=== PATIENT | female | born 1995 | race Caucasian/White ===

== ENCOUNTER 2022-02-16 09:46 | Outpatient (CLI) | payer OTHER, SELFPAY ==
[2022-02-16 12:57] LABS: HIV 1/2/P24 Combo Screen* Negative (Negative)
[2022-02-16 13:42] LABS: Chlamydia DNA Amplified* NOT DETECTED (No Detected); GC DNA Amplified* NOT DETECTED (No Detected)
[2022-02-16 16:46] LABS: Hepatitis B Surface Antigen* Negative (Negative)
[2022-02-16 18:21] LABS: Hepatitis C Virus Antibody* Negative (Negative)
[2022-02-18 00:21] LABS: Rapid Plasma Reagin (RPR) Non Reactive (Non Reactive)
[2022-02-18 03:58] LABS: Rubella Antibody IgG 62.9 IU/mL
== END 2022-02-16 09:47 | disposition home or self-care (01) ==
PROVIDERS: Visit Provider Advanced Practice Midwife
DX: Z34.91 Encounter for supervision of normal pregnancy, unspecified, first trimester (principal); Z3A.08 8 weeks gestation of pregnancy
CPT/HCPCS: 76817; 81420; 86592; 86703; 86762; 86803; 86850; 86900; 86901; 87086; 87340; 87491; 87591

== ENCOUNTER 2022-04-12 08:42 | Outpatient (CLI) | payer OTHER, SELFPAY | END 2022-04-12 08:43 | disposition home or self-care (01) | LOC: NFLDREF 08:43 | PROVIDERS: Visit Provider Advanced Practice Midwife | DX: Z34.92 Encounter for supervision of normal pregnancy, unspecified, second trimester (principal); Z3A.17 17 weeks gestation of pregnancy | CPT/HCPCS: 81511 ==

== ENCOUNTER 2022-05-03 09:34 | Outpatient (CLI) | payer OTHER, SELFPAY ==
--- NOTE | 2022-05-03 09:45 | CRLHL7_ITS ---
For Patients: As a result of the Century Cures Act, medical imaging exams and procedure reports are released immediately into your electronic medical record. You may view this report before your referring provider. If you have questions, please contact your health care provider. OB ULTRASOUND, 05/03/2022 CLINICAL HISTORY: anatomy survey. CASSY by LMP: 09/19/2022. GA: 20 w, 1 d. : 1. FINDINGS: position: Multiple positions. Cervix: Visualized. Technique: Transabdominal and transvaginal. Length of closed cervix: 4.3 cm. Placenta/cord: Posterior. Technique: Transabdominal and transvaginal. Umbilical Cord: 3-vessel cord. Amniotic Fluid: 3.7 cm SDP (greater than/equal to: 2- less than 8 cm). SURVEY: Observed Structures Cerebellum: Yes. 1.9 cm; 19 w 3 d. Cisterna Magna: Yes. 5.0 mm. Nuchal Fold: Yes. 4.3 mm. Lateral Ventricle: Yes. 6.6 mm. CSP: Yes. Midline Falx: Yes. Choroid Plexus: Yes. Spine: Yes. Stomach: Yes. Abd Cord Insertion: Yes. Urinary Bladder: Yes. Kidneys: Yes. Diaphragm: Yes. Nose/lips: Yes. Orbital view: Yes. Profile: Yes. Upper Extremities: Yes. Lower Extremities: Yes. Hands: Yes. Feet: Yes. Four-Chamber Heart: Yes. LVOT: Yes. RVOT: Yes. BPD: 4.3 cm. 19 w 0 d, 11percent. HC: 16.7 cm. 19 w 3 d, 12 percent. AC: 14.7 cm. 20 w 0 d, 39 percent. FL: 3.1 cm. 19 w 3 d, 20 percent. FL/AC: 20.8%. HC/AC Ratio: 1.13. Heart rate: 154 beats per minute. age by this US: 19 w 3 d. CASSY by this US: 09/24/2022. EFW: 307 g. Weight: 0 lbs, 11 oz. Percentile by CASSY: 22%. COMMENT: Cord insertion into the placenta is approximately 1.9 cm from the edge of the placenta. Placenta is posterior with the edge of the placenta at the margin of the cervix. IMPRESSION: 1. Single live intrauterine gestation. No gross anomalies visualized. 2. Cord insertion into placenta near the edge of the placenta, approximately 1.9 cm from the edge. 3. Posterior placenta with edge at the cervix. Isela Guillermo M.D. Diagnostic/Breast Radiologist [email or web address] LAKISHAP/[email or web address] jj/Dictated by: Isela Guillermo MD @ 05/03/2022 1:34:00 PM (Electronically Signed)
== END 2022-05-03 09:35 | disposition home or self-care (01) ==
LOC: US 09:34
PROVIDERS: Visit Provider Advanced Practice Midwife
DX: Z34.92 Encounter for supervision of normal pregnancy, unspecified, second trimester (principal); Z3A.20 20 weeks gestation of pregnancy
CPT/HCPCS: 76805; 76817

== ENCOUNTER 2022-06-29 08:39 | Outpatient (CLI) | payer OTHER, SELFPAY ==
--- NOTE | 2022-06-29 08:45 | CRLHL7_ITS ---
For Patients: As a result of the Century Cures Act, medical imaging exams and procedure reports are released immediately into your electronic medical record. You may view this report before your referring provider. If you have questions, please contact your health care provider. INDICATION: GROWTH, PARTIAL PLACENTA PREVIA COMPARISON: 05/03/2022 TECHNIQUE: Real time lobo scale imaging of the fetus was performed. FINDINGS: Sonographic imaging demonstrates a single living intrauterine gestation. Fetus demonstrates a regular cardiac rate of 161 beats per minute. Fetus has a breech position. The placenta lies posteriorly. The edge of the placenta abuts the internal os. Amniotic fluid volume appears normal and there is a single deepest vertical pocket: 3.4 cm. The estimated weight is 1075gm which lies at the 13th %. On the prior OB ultrasound exam dated 05/03/2022 the estimated weight was at the 22nd%. BPD 16th percentile. HC 30th percentile. AC 20th percentile. FL 8th percentile. The HC/AC ratio measures 1.14 range (1.03-1.22). IMPRESSION: The posterior placental edge abuts the internal cervical os. Sonographic gestational age 27 weeks 5 days and sonographic due date 09/23/2022. Sonographic age 4 days behind clinical age. Estimated weight 13th percentile. Abdominal circumference 20th percentile. Dictated by Jose Bejarano MD @ 06/29/2022 12:00:25 PM (Electronically Signed)
== END 2022-06-29 08:40 | disposition home or self-care (01) ==
LOC: US 08:40
PROVIDERS: Visit Provider Advanced Practice Midwife
DX: O44.22 Partial placenta previa NOS or without hemorrhage, second trimester (principal); Z3A.27 27 weeks gestation of pregnancy
CPT/HCPCS: 76816; 76817; 86592

== ENCOUNTER 2022-07-27 07:12 | Outpatient (CLI) | payer OTHER, SELFPAY ==
--- NOTE | 2022-07-27 07:15 | CRLHL7_ITS ---
For Patients: As a result of the Cures Act, medical imaging exams and procedure reports are released immediately into your electronic medical record. You may view this report before your referring provider. If you have questions, please contact your health care provider. INDICATION: growth and placental location, partial placenta previa COMPARISON: 06/29/2022 TECHNIQUE: Real time lobo scale imaging of the fetus was performed. FINDINGS: Sonographic imaging demonstrates a single living intrauterine gestation. Fetus demonstrates a regular cardiac rate of 144 beats per minute. Fetus has a breech position. The placenta lies posteriorly. On transvaginal imaging, the edge of the placenta is located 1.5 cm from the internal cervical os. The cervix is closed and measures 4.9 cm. Amniotic fluid volume appears normal and there is a single deepest vertical pocket: 6.0 cm. The estimated weight is 1776gm which lies at the 18th %. On the prior OB ultrasound exam dated 06/29/2022 the estimated weight was at the 13th%. BPD 10th percentile. HC 20th percentile. AC 21st percentile. FL 21st percentile. The HC/AC ratio measures 1.08 range (0.96-1.15). IMPRESSION: Low-lying posterior placenta with the placental edge 1.5 cm from the internal cervical os. Cervix is closed and measures 4.9 cm. Sonographic gestational age 31 weeks 4 days and sonographic due date 09/24/2022. Sonographic age is 5 days behind the clinical age. Estimated weight is 18th percentile. Abdominal circumference 21st percentile. Dictated by Jose Bejarano MD @ 07/27/2022 10:07:45 AM (Electronically Signed)
== END 2022-07-27 07:13 | disposition home or self-care (01) ==
PROVIDERS: Visit Provider Advanced Practice Midwife
DX: O44.00 Complete placenta previa NOS or without hemorrhage, unspecified trimester (principal); O44.43 Low lying placenta NOS or without hemorrhage, third trimester; Z3A.31 31 weeks gestation of pregnancy
CPT/HCPCS: 76816; 76817

== ENCOUNTER 2022-08-23 08:41 | Outpatient (CLI) | payer OTHER, SELFPAY ==
--- NOTE | 2022-08-23 08:45 | CRLHL7_ITS ---
For Patients: As a result of the Cures Act, medical imaging exams and procedure reports are released immediately into your electronic medical record. You may view this report before your referring provider. If you have questions, please contact your health care provider. INDICATION: female. Assess interval growth. Partial placenta previa. Follow-up. TECHNIQUE: Transabdominal and transvaginal obstetrical ultrasound. COMPARISON: July 27, 2022. FINDINGS: Single living intrauterine in vertex presentation. Posterior placenta. The placental edge is low lying, 1.4 cm from the internal cervical os previously 1.5 cm not significantly changed. Closed cervix measuring 3.7 cm in length. heart rate 139 beats per minute. Normal amniotic fluid. Single deepest pocket measurement 4.5 cm. Biparietal diameter 8.58 cm, 34 weeks 1 day, 18th percentile. Head circumference 32.0 cm, 36 weeks 0 days, 19th percentile. Abdominal circumference 32.75 cm, 36 weeks 5 days, 75th percentile. Femur length 6.90 cm, 35 weeks 3 days, 28th percentile. Compensated calculated ultrasound age 35 weeks 5 days with a sonographic due date of September 22, 2022. This is 3 days behind the age based on the last menstrual period provided. The head to abdominal circumference ratio is normal at 0.98 (0.93-1.09). Estimated weight 2837 g which lies at the 49th percentile. IMPRESSION: 1. Single living intrauterine in vertex presentation. 2. Composite calculated ultrasound age 35 weeks 5 days with a sonographic due date of September 22, 2022. 3. Estimated weight 2837 grams which lies at the 49th percentile. 4. Low lying placenta unchanged. Dictated by Chi Cam MD @ 08/23/2022 10:28:30 AM (Electronically Signed)
== END 2022-08-23 08:42 | disposition home or self-care (01) ==
LOC: US 08:42
PROVIDERS: Visit Provider Advanced Practice Midwife
DX: Z34.93 Encounter for supervision of normal pregnancy, unspecified, third trimester (principal); O44.43 Low lying placenta NOS or without hemorrhage, third trimester; Z3A.36 36 weeks gestation of pregnancy
CPT/HCPCS: 76816; 76817; 87081; 87653

== ENCOUNTER 2022-09-06 05:13 | Inpatient (IN) | payer OTHER, SELFPAY ==
[2022-09-06] VITALS (37 sets, daily range): BP systolic 95–122; BP diastolic 42–78; PULSE 66–97; RESP 16; TEMP 36.4–37; O2SAT 96–100; BMI 24.7
[2022-09-06] MEDS: LACTATED RINGERS 1000 ML 1,000 ML 125 ML IV ×3 (05:45→11:00)
[2022-09-06 06:08] LABS: Basophils Percent Auto 0.2 % (0.0-3.0); Eosinophils Percent Auto 0.3 % (0.0-7.0); Hematocrit 40.3 % (33.0-51.0); Hemoglobin* 13.5 gm/dL (12.0-16.0); Immature Granulocytes Pct Auto 2.1 %; Lymphocytes Percent Auto 14.5 % (20-44); Mean Corpuscular HGB Conc 34 gm/dL (32-36); Mean Corpuscular Hemoglobin 29 pg (26-34); Mean Corpuscular Volume 86 fL (80-100); Monocytes Percent Auto 7.1 % (0.0-11.0); Neutrophils Percent Auto 75.8 % (42.0-72.0); Platelet Count* 240 K/uL (140-440); RDW Coefficient of Variation % 13.4 % (11.5-15.5); White Blood Count* 12.51 K/uL (4.50-11.00)
[2022-09-06 06:10] LABS: Slide Review Reflex No
[2022-09-06 06:47] LABS: SARS PCR* Negative SARS-CoV-2 (Negative)
[2022-09-06] MEDS: CEFAZOLIN 2 GM in 0.9 % SODIUM CHLORIDE Mini-bag 100 ML IVPB (07:20)
--- NOTE | 2022-09-06 08:23 | P.OBPRC_ITS ---
Procedure Pre-op/Post-op diagnoses: Pre-Op/Post-Op Diagnoses Operation Date: 09/06/22 07:15 <No data on this case meets the specified criteria> Procedure Done: Global Procedure Details: Procedures Operation Date: 09/06/22 07:15 Actual Procedure Side Surgeon p Primary Section Danica Madison MD Estimated blood loss (mL): 384 Disposition: floor Anesthesia type: TAP block Complications: None. Narrative: PREOPERATIVE DIAGNOSES: 1. Intrauterine at 38 1/7 weeks' gestation. 2. Marginal placenta previa/low-lying placenta 1.4 cm from internal cervical os. POSTOPERATIVE DIAGNOSES: 1. Intrauterine at 38 1/7 weeks' gestation. 2. Marginal placenta previa/low-lying placenta 1.4 cm from internal cervical os. NAME OF PROCEDURE: Primary low transverse section. SURGEON: [place]. ANESTHESIA: Spinal. TAP block. COMPLICATIONS: None. ESTIMATED BLOOD LOSS: 384 mL. DRAINS: Peña to gravity. FINDINGS: Live-born female , cephalic presentation, OT position, Apgars 9 and 9 at 1 and 5 minutes respectively. weight 6 lb 15 oz. Normal appearing uterus, tubes, and ovaries. PROCEDURE: After obtaining informed consent, the patient was taken to the operating room where spinal anesthesia was obtained and found to be adequate. She was prepared and draped in the normal sterile fashion in the dorsal supine position with a leftward tilt. A Pfannenstiel skin incision was made with a scalpel. This incision was carried down to the underlying layer of fascia with the Bovie. The fascia was incised in the midline and the incision extended laterally. The superior and inferior aspects of the fascial incision were grasped with Kwame clamps, elevated and the underlying rectus muscles dissected off sharply and with electrocautery. The rectus muscles were then in the midline. The Ellis O retractor was then placed into the incision. The lower uterine segment was then incised in a transverse fashion with the scalpel. Upon entry into the uterus, clear amniotic fluid was noted. The uterine incision was extended laterally with blunt finger fractionation. The 's head was delivered atraumatically, followed by the remainder of the 's body. The nose and mouth were suctioned with the bulb suction. The cord was doubly clamped and cut, and the was handed off the field for evaluation. Tranexamic acid 1000 mg and Pitocin 10 units were administered intravenously. The placenta was delivered spontaneously with umbilical cord traction and fundal massage. The uterus was cleared of all clots and debris. The uterine incision was reapproximated in a running locking fashion with a 0 chromic suture. A 2nd layer of the same suture was used to imbricate in horizontal fashion. The gutters were irrigated and suctioned. All instruments and retractors were removed. The anterior peritoneum was reapproximated in a running fashion with a 3-0 Vicryl suture. The subfascial tissues were carefully inspected and hemostasis assured. The fascia was reapproximated in a running fashion with a looped 0 Maxon suture. The subcutaneous tissues were copiously irrigated. Hemostasis was assured. The skin was closed in a subcuticular fashion with 4-0 Vicryl. LiquiBand and dressing were applied. The patient tolerated the procedure well. Sponge, lap, needle, and instrument counts were reported as c orrect x2. The patient was taken to the recovery room, awake, and in stable condition. She did receive 2 grams of IV Ancef preoperatively.
--- NOTE | 2022-09-06 08:58 | W.ANESCHARGE ---
Anesthesia Charges Start Date/Time Anesthesia Start Date: 09/06/22 Anesthesia Start Time: 07:15 Stop Date/Time Anesthesia Stop Date: 09/06/22 Anesthesia Stop Time: 08:47
--- NOTE | 2022-09-06 08:59 | P.NB_ITS ---
Nerve Block Nerve Block Time Seen by Provider: 08:40 Date Seen: 09/06/22 Type of block requested by surgeon for post-operative analgesia: TAP Side: bilateral Time out performed: Yes Verification of patient name: Yes Verification of date of : Yes Site marking: site marked Name of person performing procedure: Dereje Manty Continuous monitoring Was continuous monitoring of O2 sat, B/P, customer project manager, recorded every 15 minutes?: Yes Procedure Checklist: sterile prep, needles and gloves Ultrasound guided. Images saved: Yes Medications given in 5ml increments after negative aspiration: Marcaine %: 0.25 mL: 30 and Exparel mL: 10 Patient tolerated procedure well: Yes Block Charges Block Charge (with Pro Fee): TAP Bilateral Use of Ultrasound Machine for Block: Yes- US Guidance/pain block
[2022-09-06] MEDS: KETOROLAC 30 MG/ML inj IVP ×2 (14:22→20:17)
[2022-09-07] VITALS (9 sets, daily range): BP systolic 100–107; BP diastolic 67–72; PULSE 68–73; RESP 16; TEMP 36.8–37.1; O2SAT 96–98
[2022-09-07] MEDS: KETOROLAC 30 MG/ML inj IVP ×3 (02:21→14:12)
[2022-09-07] MEDS: SODIUM CHLORIDE 0.9 % (FLUSH) 10 ML SYRINGE IVF ×3 (02:21→14:13)
[2022-09-07 06:12] LABS: Hemoglobin* 11.6 gm/dL (12.0-16.0)
[2022-09-07] MEDS: DOCUSATE SODIUM 100 MG CAPSULE PO (08:16)
--- NOTE | 2022-09-07 09:01 | P.OBPN_ITS ---
Documented by User: Ramona Vargas CNM 09/07/22 23:52 OB - PN: A/P Assessment and Plan (1) Status post primary low transverse section: Status: Acute (2) Lactating mother: Status: Acute Plan Assessment/Plan G 1 P 1 status post uncomplicated primary . Lactating Mother 1. ?Continue routine PP cares 2. ?. ?May see if desired 3. ?Anticipate discharge home tomorrow, or the following day per pt preference Plan day: 1 Plan: routine postop care OB - PN: Subj Subjective Time Seen by Provider: 09:01 Date Seen: 09/07/22 Interval history: Subjective: Esme is a 27 y.o. who was admitted to [facility] & D for PCS r/t low lying placenta. She had an uncomplicated primary delivery. ? The patient feels well. ?The pain is well controlled with current medications. ?She has no new complaints. ?She is breast feeding and reports things are going well.? the patient has done well.? Vitals have been stable.? She has remained afebrile.? Has a good appetite, is tolerating a general diet. ?She is voiding without difficulty.? She is passing gas and has not had a bowel movement.? She is ambulating and denies any dizziness.? Has a small amount of rubra lochia.?? Patient comments: no complaints, pain well controlled, tolerating diet and flatus present [place] infant status: and doing well [place] feeding status: exclusively OB - PN: Obj Exam Physical Exam: Vital signs: Temp Pulse Resp BP Pulse Ox O2 Del Method 98.4 F 73 16 105/72 98 09/07/22 08:04 09/07/22 08:04 09/07/22 08:04 09/07/22 08:04 09/07/22 08:04 09/07/22 08:04 Narrative: Objective: VSS. ?Afebrile GENERAL APPEARANCE: ?normal affect, alert, no distress MOOD: ?appropriate HEENT: normocephalic, neck supple, full ROM CHEST: ?Symmetrical chest wall movement. ?Normal respiratory effort. ?Clear to auscultation HEART: ?regular rate and rhythm ABDOMEN: ?soft, non-tender. Uterine fundus is firm, at Umbilicus, Midline and is appropriate for the stage of recovery. ?Bowel sounds present. EXTREMITIES: ?normal and mild edema SKIN: warm, dry. ?Incision clean/dry/well approximated. ?No signs of infection noted. Urinary Catheter Management: Urethral: Cath placed during this visit: yes, but has since been removed by the nurse Reason for continuing: surgical procedure Insertion date: 09/06/22 Insertion time: 07:28 Removal date: 09/06/22 Removal time: 22:00 OB - PN: Obj Data Labs Labs: Laboratory Results - last 24 hr 09/06/22 09/07/22 05:55 05:48 WBC 12.51 H RBC 4.70 Hgb 13.5 11.6 L Hct 40.3 MCV 86 MCH 29 MCHC 34 RDW Coeff of Fidel 13.4 Plt Count 240 Neut % (Auto) 75.8 H Lymph % (Auto) 14.5 L [place] % (Auto) 7.1 Eos % (Auto) 0.3 Baso % (Auto) 0.2 Neut # (Auto) 9.50 H Lymph # (Auto) 1.80 [place] # (Auto) 0.90 Eos # (Auto) 0.00 Baso # (Auto) 0.00 Documented by User: Lorie Alejandre CNM 09/08/22 00:16 OB - PN: A/P Assessment and Plan (1) Status post primary low transverse section: Status: Acute (2) Lactating mother: Status: Acute OB - PN: Obj Exam Urinary Catheter Management: Urethral: Cath placed during this visit: yes, but has since been removed by the nurse
[2022-09-07] MEDS: ACETAMINOPHEN 500 MG TABLET 1000 MG PO (18:43)
[2022-09-07] MEDS: SIMETHICONE 80 MG TAB.CHEW PO (20:35)
[2022-09-07] MEDS: IBUPROFEN 600 MG TABLET PO (21:53)
[2022-09-08] MEDS: ACETAMINOPHEN 500 MG TABLET 1000 MG PO ×4 (00:43→23:05)
[2022-09-08 00:50] VITALS: BP 104/64; PULSE 60; RESP 16; TEMP 36.8; O2SAT 97
[2022-09-08] MEDS: IBUPROFEN 600 MG TABLET PO ×3 (04:09→20:21)
--- NOTE | 2022-09-08 08:01 | P.OBPN_ITS ---
OB - PN: A/P Assessment and Plan (1) Status post primary low transverse section: Status: Acute (2) Lactating mother: Status: Acute Plan day: 2 Plan: routine postop care Comments: 31 year old on day 2.? 1. Routine cares.? 2. Anticipate discharge tomorrow.? OB - PN: Subj Subjective Date Seen: 09/08/22 Interval history: Subjective: Esme is a 27 y.o. who was admitted to L & D for PCS r/t low lying placenta. She had an uncomplicated primary delivery. ? The patient feels well. ?The pain is well controlled with current medications. ?She has no new complaints. ?She is breast feeding and reports things are going well.? the patient has done well.? Vitals have been stable.? She has remained afebrile.? Has a good appetite, is tolerating a general diet. ?She is voiding without difficulty.? She is passing gas and has not had a bowel movement.? She is ambulating and denies any dizziness.? Has a small amount of rubra lochia.?? Patient comments: incisional pain (incrased pain today. Still ambulating well. Will add oxycodone PRN.), tolerating diet and flatus present [place] infant status: and doing well feeding status: exclusively Narrative: Day 2:? Vaginal Delivery at 38 and 1/7 weeks.? ?? Complications:? none? The patient feels well.? The pain is increased from yesterday but tolerable. she is taking ibuprofen and Tylenol regularly. Encouraged adding oxycodone PRN. She has no new complaints.? Urinary output is adequate and she is voiding without difficulty.? Has a good appetite, is tolerating a general diet, is passing flatus, and has not had a bowel movement.? Has?small amount of rubra lochia.? She is ambulating well.?She would like to stay today to see and get more help. OB - PN: Obj Exam Physical Exam: Vital signs: Temp Pulse Resp BP Pulse Ox O2 Del Method 98.3 F 60 16 104/64 97 09/08/22 00:50 09/08/22 00:50 09/08/22 00:50 09/08/22 00:50 09/08/22 00:50 09/08/22 00:50 Narrative: GENERAL APPEARANCE:? normal affect, alert, no distress? MOOD:? appropriate? CHEST:? clear to auscultation and percussion? HEART:? regular rate and rhythm? ABDOMEN:? soft, the uterine fundus is?U/2? and is appropriate for the stage of recovery.?Incision well approximated, without redness, bruising or drainage. EXTREMITIES:? normal and no edema? Urinary Catheter Management: Urethral: Cath placed during this visit: yes, but has since been removed by the nurse Reason for continuing: surgical procedure Insertion date: 09/06/22 Insertion time: 07:28 Removal date: 09/06/22 Removal time: 22:00
[2022-09-08] MEDS: DOCUSATE SODIUM 100 MG CAPSULE PO ×2 (09:04)
[2022-09-08 09:20] VITALS: BP 116/77; PULSE 89; RESP 16; TEMP 37.1; O2SAT 99
[2022-09-08 17:04] VITALS: BP 117/81; PULSE 63; RESP 16; TEMP 36.7; O2SAT 100
[2022-09-08 23:08] VITALS: BP 112/73; PULSE 68; RESP 16; TEMP 36.4; O2SAT 98
[2022-09-09] MEDS: IBUPROFEN 600 MG TABLET PO (04:38)
[2022-09-09 08:00] VITALS: BP 112/75; PULSE 79; RESP 16; TEMP 36.9; O2SAT 96
[2022-09-09] MEDS: DOCUSATE SODIUM 100 MG CAPSULE PO (08:04)
[2022-09-09] MEDS: ACETAMINOPHEN 500 MG TABLET 1000 MG PO (08:04)
--- NOTE | 2022-09-09 10:36 | P.OBPN_ITS ---
OB - PN: A/P Assessment and Plan (1) Status post primary low transverse section: Status: Acute Assessment and Plan: routine postop care discharge home today (2) Lactating mother: Status: Acute Plan day: 3 Plan: routine postop care and discharge home OB - PN: Subj Subjective Date Seen: 09/09/22 Interval history: Subjective: Esme is a 27 y.o. who was admitted to L & D for PCS r/t low lying placenta. She had an uncomplicated primary delivery. ? The patient feels well. ?The pain is well controlled with current medications. ?She has no new complaints. ?She is breast feeding and reports things are going well.? the patient has done well.? Vitals have been stable.? She has remained afebrile.? Has a good appetite, is tolerating a general diet. ?She is voiding without difficulty.? She is passing gas and has not had a bowel movement.? She is ambulating and denies any dizziness.? Has a small amount of rubra lochia.?? OB - PN: Obj Exam Physical Exam: Vital signs: Temp Pulse Resp BP Pulse Ox O2 Del Method 98.5 F 79 16 112/75 96 09/09/22 08:00 09/09/22 08:00 09/09/22 08:00 09/09/22 08:00 09/09/22 08:00 09/08/22 17:04 Constitutional: Constitutional: no acute distress and cooperative Routine HEENT Exam: Head: Present atraumatic and normocephalic Routine Respiratory Exam: Respiratory: Present CTA bilaterally Routine Cardiovascular Exam: Cardiovascular: Present RRR Routine Abdominal Exam: Abdominal: Present soft Fundus: Present firm (below umbilicus) Comments: Incision intact clean and dry Routine Extremities Exam: Extremities: Present full ROM and pulses intact Routine Skin Exam: Skin: Present dry, intact and warm Routine Neurological Exam: Neurological: Present alert, oriented X3 and CN II- XII intact Wound Management: Method: suture Examination: Present clean, dry, intact and tenderness (appropriate for POD # 3) Urinary Catheter Management: Urethral: Cath placed during this visit: yes, but has since been removed by the nurse Reason for continuing: surgical procedure Insertion date: 09/06/22 Insertion time: 07:28 Removal date: 09/06/22 Removal time: 22:00
--- NOTE | 2022-09-09 11:05 | PM.OBDSCS1 ---
DS: Providers Provider Time Seen by Provider: 08:50 Date Seen: 09/09/22 Date of admission: 09/06/22 05:13 Primary care physician: Not a Local Provider Admitting Clinician: Danica Madison MD Attending Physician on discharge: Tasneem Sanchez Do Date of Discharge: 09/09/22 Exam Narrative: Exam Narrative: Patient admitted 09/06/2022 for PLTCS secondary to placenta previa. Patient had uncomplicated procedure, normal postoperative phase of care and discharged home in stable condition on 09/09/2022 with live female . Const: Vital Signs, click to edit/add: Vital Signs - 24 hr 09/08/22 17:04 09/08/22 23:08 09/09/22 08:00 Temperature 98.1 F 97.5 F L 98.5 F Pulse Rate [Pulse Oximeter] 63 68 79 Respiratory Rate 16 16 16 Blood Pressure [Ri ght Arm] 117/81 112/73 112/75 Pulse Oximetry 100 98 96 Oxygen Delivery Me thod Room Air HENMT: Common normals: normocephalic and head/scalp atraumatic Head and scalp: normocephalic and atraumatic Resp: Common normals: normal respiratory effort, no retractions and clear to auscultation bilaterally Auscultation: clear to auscultation bilaterally Cardio: Common normals: regular rate and regular rhythm Rate: regular rate Rhythm: regular rhythm GI: Common normals: Normal to inspection, nondistended, normoactive bowel sounds present Inspection: incision (clean dry and intact) Rectal Exam - Female: deferred Extremity: Common normals: normal to inspection and full ROM Skin: Common normals: skin turgor normal General skin exam: turgor normal OB - DS: Summary Hospital Course Hospital Course: The patient is a 27 year old G [] P [] at [] weeks gestation that was admitted to the Center on 09/06/22 for []. She had an [uncomplicated/complicated] [vaginal/] delivery. She delivered a viable [male/female] infant. She is [breast/bottle] feeding. the patient has done well. Peripartum Data Procedures: Procedures Operation Date: 09/06/22 07:15 Actual Procedure Side Surgeon p Primary Section Danica Madison MD Myra Gender: Female Time Spent with Patient Time attestation: Total time spent providing and/or coordinating discharge services: Discharge Plan Discharge Disposition: Home, Self-Care Date of Admission: 09/06/22 05:13 Attending Provider on Discharge: Tasneem Sanchez Primary Care Provider: Provider,Not a Local Condition: Stable Anticipated Discharge Date/Time: 09/09/22 10:21 Discharge Medications: New acetaminophen 500 mg Tablet 1,000 mg PO Q6H PRN (Reason: Pain) 5 Days Qty: 30 0RF ibuprofen 600 mg Tablet 600 mg PO Q6H PRN (Reason: Pain) 5 Days Qty: 30 0RF oxycodone 5 mg Tablet 5 - 10 mg PO Q4H PRN (Reason: Pain) 3 Days Qty: 18 0RF Continued DHA 200 mg capsule 200 mg PO DAILY Discharge Orders: Discharge Order (Routine); Ordered 09/09/22 Ordered By: Tasneem Sanchez Patient Education: OB Over the Counter Medication Information, OB /Breast Feeding Activity Level: No strenuous activity, Light activity and No Weight Bearing Activity Detail: No lifting over 15-20 lbs, abdominal binder during the day, shower, no tub bathing, no tampon use, no vaginal penetrative intercourse for 6 weeks Discharge Diet: Regular Follow Up Appointments: Provider,Not a Local [Primary Care Provider] - Forms: MyHealth Info Instructions
== END 2022-09-09 12:00 | disposition home or self-care (01) | DRG 788 ==
PROVIDERS: Admitting Provider Obstetrics & Gynecology; Visit Provider Obstetrics & Gynecology
PROC: 10D00Z1 Extraction of Products of Conception, Low, Open Approach (ICD-10-PCS; CPT 59514; principal; 2022-09-06 07:15)
DX: O44.43 Low lying placenta NOS or without hemorrhage, third trimester (principal); Z3A.38 38 weeks gestation of pregnancy; Z37.0 Single live birth
CPT/HCPCS: 01961; 36415; 64488; 76942; 85018; 85025; 86850; 86900; 86901; 86922; 87635; 88307; A9270; C9290; J0690; J1100; J1885; J2274; J2370; J2405; J2590; J3490; J7120